=== PATIENT | male | born 1955 | race Caucasian/White ===

== ENCOUNTER → 2021-03-19 10:05 | Outpatient (BNVA) | payer OTHER, SELFPAY | PROVIDERS: PCP Nurse Practitioner Family; Referring Provider Nurse Practitioner Family; Visit Provider Anesthesiology Pain Medicine | DX: M51.36 Other intervertebral disc degeneration, lumbar region (principal); M47.816 Spondylosis without myelopathy or radiculopathy, lumbar region; Z96.643 Presence of artificial hip joint, bilateral; Z87.891 Personal history of nicotine dependence | CPT/HCPCS: 99205 ==

== ENCOUNTER → 2021-03-27 13:45 | Outpatient (BNVA) | payer OTHER, SELFPAY | PROVIDERS: PCP Nurse Practitioner Family; Visit Provider Anesthesiology Pain Medicine | DX: M47.816 Spondylosis without myelopathy or radiculopathy, lumbar region (principal) | CPT/HCPCS: 64493; 64494; 64495; J3490 ==

== ENCOUNTER → 2021-04-11 10:24 | Outpatient (BNVA) | payer OTHER, SELFPAY | PROVIDERS: PCP Nurse Practitioner Family; Visit Provider Anesthesiology Pain Medicine | DX: M51.36 Other intervertebral disc degeneration, lumbar region (principal); M47.816 Spondylosis without myelopathy or radiculopathy, lumbar region; Z96.643 Presence of artificial hip joint, bilateral | CPT/HCPCS: 99214 ==

== ENCOUNTER → 2021-04-22 12:37 | Outpatient (BNVA) | payer OTHER, SELFPAY | PROVIDERS: PCP Nurse Practitioner Family; Visit Provider Anesthesiology Pain Medicine | DX: Z01.812 Encounter for preprocedural laboratory examination (principal); E11.9 Type 2 diabetes mellitus without complications; M47.816 Spondylosis without myelopathy or radiculopathy, lumbar region | CPT/HCPCS: 36416; 64635; 64636; 82962 ==

== ENCOUNTER → 2021-05-27 14:41 | Outpatient (BNVA) | payer OTHER, SELFPAY | PROVIDERS: PCP Nurse Practitioner Family; Visit Provider Anesthesiology Pain Medicine | DX: Z01.812 Encounter for preprocedural laboratory examination (principal); E11.9 Type 2 diabetes mellitus without complications; M47.816 Spondylosis without myelopathy or radiculopathy, lumbar region; M54.16 Radiculopathy, lumbar region; Z79.84 Long term (current) use of oral hypoglycemic drugs | CPT/HCPCS: 36416; 64635; 64636; 82962; J1030 ==

== ENCOUNTER → 2021-05-29 09:11 | Outpatient (BNVA) | payer OTHER, SELFPAY | PROVIDERS: PCP Nurse Practitioner Family; Visit Provider Specialist | DX: M25.511 Pain in right shoulder (principal) | CPT/HCPCS: 73030 ==

== ENCOUNTER → 2021-06-10 09:54 | Outpatient (BNVA) | payer OTHER, SELFPAY | PROVIDERS: PCP Nurse Practitioner Family; Visit Provider Anesthesiology Pain Medicine | DX: G89.29 Other chronic pain (principal); M51.36 Other intervertebral disc degeneration, lumbar region; M47.816 Spondylosis without myelopathy or radiculopathy, lumbar region; M25.551 Pain in right hip; M25.552 Pain in left hip; Z96.643 Presence of artificial hip joint, bilateral | CPT/HCPCS: 99214 ==

== ENCOUNTER 2021-06-14 06:00 | Outpatient (RCR) | payer OTHER, SELFPAY | END 2021-07-02 23:59 | disposition home or self-care (01) | LOC: WPT 06:00 | PROVIDERS: PCP Nurse Practitioner Family; Referring Provider Specialist; Visit Provider Specialist | DX: M25.511 Pain in right shoulder (principal) | CPT/HCPCS: 97110; 97140; 97162; 97530 ==

== ENCOUNTER 2021-07-03 06:00 | Outpatient (RCR) | payer OTHER, SELFPAY | END 2021-08-02 23:59 | disposition home or self-care (01) | LOC: WPT 06:00 | PROVIDERS: PCP Nurse Practitioner Family; Referring Provider Specialist; Visit Provider Specialist | DX: M25.511 Pain in right shoulder (principal) | CPT/HCPCS: 97110; 97140; 97530 ==

== ENCOUNTER 2021-08-03 06:00 | Outpatient (RCR) | payer OTHER, SELFPAY | END 2021-09-02 23:59 | disposition home or self-care (01) | LOC: WPT 06:00 | PROVIDERS: PCP Nurse Practitioner Family; Referring Provider Specialist; Visit Provider Specialist | DX: M25.511 Pain in right shoulder (principal) | CPT/HCPCS: 97110; 97140 ==

== ENCOUNTER → 2021-09-16 09:58 | Outpatient (BNVA) | payer OTHER, SELFPAY | PROVIDERS: PCP Nurse Practitioner Family; Visit Provider Anesthesiology Pain Medicine | DX: M51.36 Other intervertebral disc degeneration, lumbar region (principal); M47.816 Spondylosis without myelopathy or radiculopathy, lumbar region; Z96.643 Presence of artificial hip joint, bilateral; Z87.891 Personal history of nicotine dependence | CPT/HCPCS: 99214 ==

== ENCOUNTER 2021-10-28 06:00 | Outpatient (RCR) | payer OTHER, SELFPAY | END 2021-10-31 23:59 | disposition home or self-care (01) | LOC: WST 06:00 | PROVIDERS: PCP Nurse Practitioner Family; Referring Provider Nurse Practitioner Family; Visit Provider Nurse Practitioner Family | DX: R13.10 Dysphagia, unspecified (principal) | CPT/HCPCS: 92610 ==

== ENCOUNTER 2021-11-01 06:00 | Outpatient (RCR) | payer OTHER, SELFPAY | END 2021-11-30 23:59 | disposition home or self-care (01) | LOC: WST 06:00 | PROVIDERS: PCP Nurse Practitioner Family; Referring Provider Nurse Practitioner Family; Visit Provider Nurse Practitioner Family | DX: R13.10 Dysphagia, unspecified (principal) | CPT/HCPCS: 92526 ==

== ENCOUNTER → 2021-11-05 09:53 | Outpatient (BNVA) | payer OTHER, SELFPAY | PROVIDERS: PCP Nurse Practitioner Family; Visit Provider Anesthesiology Pain Medicine | DX: M51.36 Other intervertebral disc degeneration, lumbar region (principal); M47.816 Spondylosis without myelopathy or radiculopathy, lumbar region; Z96.643 Presence of artificial hip joint, bilateral; Z87.891 Personal history of nicotine dependence | CPT/HCPCS: 99214 ==

== ENCOUNTER 2021-12-01 06:00 | Outpatient (RCR) | payer OTHER, SELFPAY | END 2021-12-31 23:59 | disposition home or self-care (01) | LOC: WST 06:00 | PROVIDERS: PCP Nurse Practitioner Family; Referring Provider Nurse Practitioner Family; Visit Provider Nurse Practitioner Family | DX: R13.10 Dysphagia, unspecified (principal) | CPT/HCPCS: 92526 ==

== ENCOUNTER 2022-01-01 06:00 | Outpatient (RCR) | payer OTHER, SELFPAY | END 2022-01-30 23:59 | disposition home or self-care (01) | LOC: WST 06:00 | PROVIDERS: PCP Nurse Practitioner Family; Referring Provider Nurse Practitioner Family; Visit Provider Nurse Practitioner Family | DX: R13.10 Dysphagia, unspecified (principal) | CPT/HCPCS: 92526 ==

== ENCOUNTER → 2022-01-07 07:47 | Outpatient (BNVA) | payer OTHER, SELFPAY | PROVIDERS: PCP Nurse Practitioner Family; Visit Provider Anesthesiology Pain Medicine | DX: M51.36 Other intervertebral disc degeneration, lumbar region (principal); M47.816 Spondylosis without myelopathy or radiculopathy, lumbar region; M25.551 Pain in right hip; M25.552 Pain in left hip; Z96.643 Presence of artificial hip joint, bilateral; Z87.891 Personal history of nicotine dependence | CPT/HCPCS: 99212 ==

== ENCOUNTER 2022-01-28 06:00 | Outpatient (RCR) | payer OTHER, SELFPAY | END 2022-01-30 23:59 | disposition home or self-care (01) | LOC: WPT 06:00 | PROVIDERS: PCP Nurse Practitioner Family; Referring Provider Nurse Practitioner Family; Visit Provider Nurse Practitioner Family | DX: G89.29 Other chronic pain (principal); M54.50 Low back pain, unspecified | CPT/HCPCS: 97162 ==

== ENCOUNTER 2022-01-31 06:00 | Outpatient (RCR) | payer OTHER, SELFPAY | END 2022-03-02 23:59 | disposition home or self-care (01) | LOC: WPT 06:00 | PROVIDERS: PCP Nurse Practitioner Family; Referring Provider Nurse Practitioner Family; Visit Provider Nurse Practitioner Family | DX: M54.50 Low back pain, unspecified (principal) | CPT/HCPCS: 97110 ==

== ENCOUNTER 2022-03-03 06:00 | Outpatient (RCR) | payer OTHER, SELFPAY | END 2022-04-02 23:59 | disposition home or self-care (01) | LOC: WPT 06:00 | PROVIDERS: PCP Nurse Practitioner Family; Referring Provider Nurse Practitioner Family; Visit Provider Nurse Practitioner Family | DX: M54.50 Low back pain, unspecified (principal) | CPT/HCPCS: 97110; 97164 ==

== ENCOUNTER → 2022-03-26 08:55 | Outpatient (BNVA) | payer OTHER, SELFPAY | PROVIDERS: PCP Nurse Practitioner Family; Visit Provider Anesthesiology Pain Medicine | DX: M25.551 Pain in right hip (principal); M25.552 Pain in left hip; Z87.891 Personal history of nicotine dependence; M51.36 Other intervertebral disc degeneration, lumbar region; M47.816 Spondylosis without myelopathy or radiculopathy, lumbar region; Z96.643 Presence of artificial hip joint, bilateral | CPT/HCPCS: 99213 ==

== ENCOUNTER → 2022-05-14 13:10 | Outpatient (BNVA) | payer OTHER, SELFPAY | PROVIDERS: PCP Nurse Practitioner Family; Visit Provider Specialist | DX: M19.011 Primary osteoarthritis, right shoulder (principal) | CPT/HCPCS: 20610; 73030; 99213; J1100; J2795; J3301 ==

== ENCOUNTER → 2022-06-18 09:46 | Outpatient (BNVA) | payer OTHER, SELFPAY | PROVIDERS: PCP Nurse Practitioner Family; Visit Provider Anesthesiology Pain Medicine | DX: M51.36 Other intervertebral disc degeneration, lumbar region (principal); M47.816 Spondylosis without myelopathy or radiculopathy, lumbar region; M25.551 Pain in right hip; M25.552 Pain in left hip; Z87.891 Personal history of nicotine dependence; Z96.643 Presence of artificial hip joint, bilateral | CPT/HCPCS: 99214 ==

== ENCOUNTER 2022-08-12 06:00 | Outpatient (RCR) | payer OTHER, SELFPAY | END 2022-09-02 23:59 | disposition home or self-care (01) | LOC: WPT 06:00 | PROVIDERS: PCP Nurse Practitioner Family; Visit Provider Anesthesiology Pain Medicine | DX: M54.50 Low back pain, unspecified (principal); G89.29 Other chronic pain | CPT/HCPCS: 97110; 97112; 97161; 97530 ==

== ENCOUNTER 2022-09-03 06:00 | Outpatient (RCR) | payer OTHER, SELFPAY | END 2022-09-30 23:59 | disposition home or self-care (01) | LOC: WPT 06:00 | PROVIDERS: PCP Nurse Practitioner Family; Visit Provider Anesthesiology Pain Medicine | DX: M54.50 Low back pain, unspecified (principal); G89.29 Other chronic pain | CPT/HCPCS: 97110; 97112 ==

== ENCOUNTER 2022-10-01 06:00 | Outpatient (RCR) | payer OTHER, SELFPAY | END 2022-10-31 23:59 | disposition home or self-care (01) | LOC: WPT 06:00 | PROVIDERS: PCP Nurse Practitioner Family; Visit Provider Anesthesiology Pain Medicine | DX: M54.50 Low back pain, unspecified (principal); G89.29 Other chronic pain | CPT/HCPCS: 97110; 97112 ==

== ENCOUNTER → 2022-10-08 08:45 | Outpatient (BNVA) | payer OTHER, SELFPAY | PROVIDERS: PCP Nurse Practitioner Family; Visit Provider Nurse Practitioner Family | DX: M19.011 Primary osteoarthritis, right shoulder (principal) | CPT/HCPCS: 73030; 99214 ==

== ENCOUNTER 2022-11-06 15:39 | Outpatient (CLI) | payer OTHER, SELFPAY ==
--- NOTE | 2022-11-06 16:00 | MR_ITS ---
WS: [id number] EXAMINATION: MR shoulder RT wo con* [id number] ORDER DATE: 11/06/2022 4:36 PM COMPARISON: None. HISTORY: pain CONTRAST: None. TECHNIQUE: Axial T2 STAR, coronal proton density fat sat, sagittal T2 fat sat, sagittal proton densit y fat sat, axial proton density fat sat, coronal T2 fat sat, and coronal T1 performed. After contrast , axial T1 fat sat, coronal T1 fat sat, and sagittal T1 fat sat were performed. FINDINGS: Advanced degenerative arthritis AC joint. Mild downsloping acromion. Slight subacromial spurring. Imp ingement on the distal supraspinatus. Advanced degenerative narrowing glenohumeral joint. Hypertrophi c spurring along the medial humeral neck. Chronic thinning of the distal supraspinatus appears intact. Normal infraspinatus. Normal teres minor . Distal subscapularis appears normal. Biceps tendon appears intact within the bicipital groove. Leonarda ps labral anchor appears intact. Tendinopathy intra-articular biceps tendon. MR/MR shoulder RT wo con* [id number] IMPRESSION: 1. Advanced arthritis AC joint with hypertrophic changes and small effusion. 2. Mild narrowing of the subacromial space. Mild chronic thinning of the dista l supraspinatus appears intact. 3. Rotator cuff is otherwise intact. 4. Biceps tendon appears intact within the bicipital groove. 5. Increased T2 signal abnormality involving the intra-articular biceps tendon compatible with tendinopathy. 6. Advanced degenerative arthritis glenohumeral joint with hypertrophic spurri ng and joint space narrowing.
== END 2022-11-06 15:40 | disposition home or self-care (01) ==
PROVIDERS: PCP Nurse Practitioner Family; Visit Provider Nurse Practitioner Family
DX: M19.011 Primary osteoarthritis, right shoulder (principal); M25.411 Effusion, right shoulder
CPT/HCPCS: 73221

== ENCOUNTER → 2022-11-17 09:45 | Outpatient (BNVA) | payer OTHER, SELFPAY | PROVIDERS: PCP Nurse Practitioner Family; Visit Provider Specialist | DX: M19.011 Primary osteoarthritis, right shoulder (principal) | CPT/HCPCS: 99214 ==

== ENCOUNTER 2022-11-18 13:19 | Outpatient (CLI) | payer OTHER, SELFPAY | END 2022-11-18 13:20 | disposition home or self-care (01) | LOC: RT 11-19 13:23 | PROVIDERS: PCP Nurse Practitioner Family; Visit Provider Specialist | DX: Z01.810 Encounter for preprocedural cardiovascular examination (principal) | CPT/HCPCS: 93005 ==

== ENCOUNTER 2022-11-25 14:46 | Observation (INO) | payer OTHER, SELFPAY ==
[2022-11-18 10:24] VITALS: BMI 38.0
--- NOTE | 2022-11-18 10:41 | ECG_ITS ---
[facility] Test Date: 2022-11-18 Pat Name: Shaq Patel Department: Room: Gender: Male Material Requirements Planning Manager: : 1955 Requested By: Francisco Batista Order Number: [id number] Javier MD: Matt Freitas M.D. Measurements Intervals [place] Rate: 74 P: 40 VT: 177 QRS: -33 QRSD: 119 T: 53 QT: 379 QTc: 421 Interpretive Statements SINUS RHYTHM LEFT AXIS DEVIATION [QRS AXIS < -30] PATTERN CONSISTENT WITH PULMONARY DISEASE MODERATE INTRAVENTRICULAR CONDUCTION DELAY [110+ ms QRS DURATION] MODERATE VOLTAGE CRITERIA FOR LVH, CONSIDER NORMAL VARIANT [MEETS CRITERIA IN ONE OF: R(aVL), S(V1), R(V5), R(V5/V6)+S(V1)] No previous ECG available for comparison Electronically Signed On 11-18-2022 15:04:52 CDT by Matt Freitas M.D. [id number]
[2022-11-18 11:24] LABS: Anion Gap 15.7 (5-19); Blood Urea Nitrogen 14 mg/dL (8-23); Calcium 9.1 mg/dL (8.5-10.5); Carbon Dioxide 25 mmol/L (22-29); Chloride 101 mmol/L (98-107); Glucose 105 mg/dL (65-115); Osmolality Calculated 287 mOsm/kg (285-295); Potassium 3.7 mmol/L (3.5-5.1); Sodium 138 mmol/L (136-145)
--- NOTE | 2022-11-18 13:23 | ANES.PREANE2 ---
Pre-Anesthetic Assessment Height/Weight: Height 1.78 m Weight 120.202 kg Operation Date: 11/25/22 11:15 Proposed Procedures p RIGHT REVERSE TOTAL SHOULDER ARTHROPLASTY 41808,M19.019(Right) - Osiris Lujan MD Familial anesthetic complications: none Was Beta Diane taken within 24 hours: Yes Was Clonidine taken within 24 hours: N/A Social No alcohol and No tobacco Exam alert, oriented x 3, clear to auscultation bilaterally and regular rate & rhythm Airway Submandibular: within normal limits Cervical ROM: within normal limits Mallampati: Class II Dentition: chipped and partials Pulmonary Sleep Apnea CV/HEM Hypertension Metabolic Diabetes Mellitus, Hyperlipidemia and Morbid Obesity [facility] Lower Back Pain and Osteoarthritis/DJD Anesthetic Plan ASA status: 3 Anesthesia: General and Regional (specify below) (Interscalene nerve blk) Medications/Allergies Home Medications Medication Instructions Recorded Confirmed Last Taken Type amlodipine 10 mg tablet 10 mg PO DAILY 03/19/21 11/18/22 11/18/22 History atenolol 100 mg tablet 50 mg PO DAILY 03/19/21 11/18/22 11/18/22 History atorvastatin 80 mg tablet 40 mg PO DAILY 03/19/21 11/18/22 11/17/22 History cetirizine 10 mg tablet 10 mg PO DAILY PRN Allergic 03/19/21 11/18/22 11/18/22 History Symptoms diclofenac sodium 1 % topical gel 2 g topical QID 03/19/21 11/18/22 11/16/22 History fluticasone propionate 50 2 spray intranasal DAILY 03/19/21 11/18/22 11/16/22 History mcg/actuation nasal spray,suspension furosemide 20 mg tablet 20 mg PO DAILY 03/19/21 11/18/22 11/18/22 History glipizide 5 mg tablet 5 mg PO BID 03/19/21 11/18/22 11/16/22 History losartan 100 mg tablet 100 mg PO DAILY 03/19/21 11/18/22 11/18/22 History sildenafil 100 mg tablet 100 mg PO .WEEK PRN Systemic Signs 03/19/21 11/18/22 11/16/22 History And Symptoms tamsulosin 0.4 mg capsule (Flomax) 0.4 mg PO DAILY 03/19/21 11/18/22 11/17/22 History cyclobenzaprine 10 mg tablet 10 mg PO TID 03/26/22 11/18/22 11/18/22 History metformin 1,000 mg tablet 1,000 mg PO 2XD 11/18/22 11/18/22 11/18/22 History Allergies Allergy/AdvReac Type Severity Reaction Status Date / Time No Known Allergies Allergy Verified 11/18/22 10:14 [facility] Anesthesia Medical History Facet arthritis, degenerative, lumbar spine Family History Mother Cancer LUNG Social History Smoking and tobacco status: former smoker Second hand smoke exposure: No Alcohol intake: never Caregiver/support person: Yes Lives independently: Yes Household members: spouse service: Yes branch: [employer] Current occupational status: retired Data Anesthesia 11/18/22 10:45 BMP 11/18/22 10:45 Sodium 138 Potassium 3.7 Chloride 101 Carbon Dioxide 25 BUN 14 Creatinine 0.8 Glucose 105 Calcium 9.1 Cardiac Studies: No Data to Display
[2022-11-25] VITALS (11 sets, daily range): BP systolic 117–167; BP diastolic 45–102; PULSE 73–92; RESP 15–20; TEMP 36.4–36.7; O2SAT 91–98
--- NOTE | 2022-11-25 10:21 | P.HPUD_ITS ---
Surgery/Procedure H&P Update DATE OF PROCEDURE: November 25, 2022 DATE H&P PERFORMED: 11/17/22 H&P UPDATE INFORMATION: I have reviewed H&P completed within last 30 days, I have examined patient prior to procedure, No changes to prior documentation and H&P is in [facility] EMR on date indicated PREOP DIAGNOSIS: Rotator cuff arthropathy right shoulder PLANNED PROCEDURE: Operation Date: 11/25/22 11:15 Proposed Procedures p RIGHT REVERSE TOTAL SHOULDER ARTHROPLASTY 39744,M19.019(Right) - Osiris Lujan MD Related Problem List Diagnoses (1) Rotator cuff arthropathy of right shoulder: (2) Primary osteoarthritis, right shoulder:
[2022-11-25] MEDS: acetaminophen 1,000 MG/100 ML PIGGYBACK 400 MG IV (10:32)
[2022-11-25] MEDS: sodium chloride 0.9% 1,000 ML 30 ML IV (10:32)
[2022-11-25] MEDS: gabapentin 300 mg Capsule PO (10:33)
[2022-11-25] MEDS: CELEcoxib 200 mg Capsule 400 MG PO (10:33)
[2022-11-25] MEDS: ceFAZolin 2,000 MG in sodium chloride 0.9% (plus) 50 ML 100 MG IV ×2 (11:10→19:43)
[2022-11-25 11:13] LABS: Add Urine Microscopic? NO; Charge for UA Resulting for Rev
--- NOTE | 2022-11-25 11:16 | P.ANESUD_ITS ---
Pre-Anesthetic Update Pre-Anesthetic Assessment: Date of Surgery/Procedure: 11/25/22 Preop Lynette gnosis: Rotator cuff arthropathy right shoulder Proposed Procedure: Operation Date: 11/25/22 11:15 Proposed Procedures p RIGHT REVERSE TOTAL SHOULDER ARTHROPLASTY 40880,M19.019(Right) - Osiris Lujan MD Any changes to Pre-Anesthetic Assessment?: No Last Intake: Intake Last Liquid Date 11/24/22 Last Liquid Time 23:00 Last Solid Date 11/24/22 Last Solid Time 23:00 Vitals: Temperature 98.1 F 11/25/22 09:54 Temperature Source Temporal Artery S can 11/25/22 09:54 Pulse Rate 76 11/25/22 09:54 Respiratory Rate 18 11/25/22 09:54 Blood Pressure 167/102 11/25/22 09:54 Blood Pressure Jennifer n 123 11/25/22 09:54 Pulse Oximetry 98 11/25/22 09:54 Oxygen Delivery Me thod Room Air 11/25/22 09:57 Exam: Pre-Anes Outpt Exam: alert, oriented x 3, clear to auscultation bilaterally and regular rate & rhythm Cardiac Studies: No Data to Display Anesthesia Procedures Nerve Block: Nerve Block 1: Main Anesthesia: general anesthesia Time Out Performed: Yes Consent: requested by attending/covering physician, from patient, risks and benefits reviewed and patient agrees to proceed Nerve block location: interscalene (right) Anesthesia monitors applied: pulse oximetry, EKG, BP cuff and oxygen Nerve block position: semi sitting Anesthetic Used: ropivicaine 0.5% Amount of anesthesia used (mL): 30 Ultrasound used to: recognize landmarks and visualize and ID brachial plexus Nerve Stimulator Used?: No Interscalene/Femoral BLK: 2 stimuplex 22 g needle used for position and inplane approach Injection: neg aspiration of heme Patient Tolerated Procedure: well Complications: none
[2022-11-25 11:18] LABS: Bilirubin Urine Neg (Negative); Blood Urine Neg (Negative); Glucose Urine UA Norm (Normal); Ketones Urine Negative (Negative); Leukocyte Esterase Urine Negative (Negative); Nitrate Urine Negative (Negative); Protein Urine Neg (Negative); Specific Gravity, Urine 1.005 (1.005-1.030); Urine Appearance Clear (CLEAR); Urine Color Yellow (Yellow); Urobilinogen Urine Neg (Negative); pH Urine 7 (5-7)
[2022-11-25 11:18] LABS: Basophils # 0.1 10^3/uL (0.0-0.1); Basophils % 0.8 %; Eosinophils # 0.3 10^3/uL (0.0-0.8); Eosinophils % 3.4 %; Hematocrit 46.8 % (42.0-52.0); Hemoglobin 15.5 g/dL (11.7-16.6); Lymphocytes # 2.5 10^3/uL (0.8-4.8); Lymphocytes % 25.1 %; Mean Corpuscular HGB Conc 33.1 g/dL (30.0-36.0); Mean Corpuscular Hemoglobin 29.4 pg (28.0-34.0); Mean Corpuscular Volume 88.6 fl (80-94); Mean Platelet Volume 9.7 fL (7.4-10.4); Monocytes # 0.5 10^3/uL (0.2-0.9); Monocytes % 5.2 %; Neutrophils # 6.48 10^3/uL (1.8-7.7); Neutrophils % 65.1 %; Nucleated Red Blood Cells % 0 %; Platelet Count 295 10^3/cmm (130-400); Red Blood Count 5.28 10^6/uL (4.1-5.3); Red Cell Distribution Width 13.4 % (12.1-15.1)
[2022-11-25] MEDS: ceFAZolin 1,000 mg SDV 1000 MG IRRIGATION (11:53)
[2022-11-25] MEDS: vancomycin 1,000 MG SDV 1000 MG XX (11:53)
--- NOTE | 2022-11-25 14:03 | XR_ITS ---
WS: [id number] Exam: XR shoulder RT min 2V* [id number] Date/Time of Exam: 11/25/2022 2:03 PM Reason For Exam: OR PICS Intraoperative AP and lateral C-arm images of the right shoulder are submitted. The images depict a reverse right shoulder prosthesis in place appearing to be in satisfactory alignm ent. Postoperative changes in the adjacent soft tissues.
--- NOTE | 2022-11-25 14:59 | ANE.PACU2 ---
Inpatient post-anesthesia follow up: Airway intact: Yes Vital signs: Temperature 98.1 F Pulse Rate 83 Respiratory Rate 20 Blood Pressure 160/99 Pulse Oximetry 97 Oxygen Delivery Me thod Simple Mask Oxygen Flow Rate 6 Fraction of Inspir ed Oxygen Hydration adequate: Yes Nausea and vomiting: No Pain level: 1 Mental status: Baseline
--- NOTE | 2022-11-25 15:07 | PM.OP ---
Operative Report Date of procedure: November 25, 2022 Pre-op diagnosis: Severe degenerative osteoarthritis and rotator cuff arthropathy of the Right shoulder with significant osteophytes Post-op diagnosis: Severe degenerative osteoarthritis and rotator cuff arthropathy of the Right shoulder with significant osteophytes Post-op findings: Large osteophytes particularly inferiorly on the humerus with severe restriction of range of motion even under anesthesia Procedure done: Reverse right shoulder arthroplasty with long head of biceps tenotomy Implants: [employer] reverse shoulder system with a size 28 reunion RSA glenoid base plate with a 28 mm x 6.5 mm center screw, a 4.5 mm x 20 mm inferior, 3 x 4.5 x 16 mm superior, anterior and posterior screws, a concentric glenosphere size 32 with 2 mm offset.? A reunion S humeral stem with a 14 mm diameter by 98 mm length and a humeral cup size 32 mm x 4 mm with a humeral insert size 32 mm x 4 mm Specimens removed/disposition: Bone, disposed of Surgeon: Osiris Lujan Senior Energy Market Coordinator: [facility] operating room technicians Anesthesia: General (Intubated, ASA 3 with preoperative interscalene block) Estimated blood loss (mL): 150 IV fluids (mL): 1,000 Urine output (mL): 400 Complications: None Findings: Severe degenerative osteoarthritic changes consistent with rotator cuff arthropathy. Large osteophytes inferior on the humeral head. Condition: stable Disposition: PACU (Then transferred to floor for postoperative rehabilitation and pain management.) Brief History: This is a 67-year-old gentleman who presented today for right reverse shoulder arthroplasty. By history, his pain has been ongoing since 2013, although he denies any prior trauma or injury. He underwent physical therapy as well as injection therapy without significant success in alleviating his pain and improving his activities of daily living. He has difficulty performing range of motion exercises, and the pain awakens him at night. He has difficulty completing his activities of daily living and also driving. After these findings and discussion of surgical options, the patient wished to proceed with reverse shoulder arthroplasty. This was scheduled for him. Consents were signed preoperatively in the office, and questions were answered. He is seen in the preoperative holding area where his shoulder is marked. His is present and further questions are answered. Procedure: The patient was brought to the operating theater and placed in a beachchair positioner following administration of general anesthesia intubated, ASA 3, as well as the preoperative regional block.? When he was positioned and confirmation was made that we could place the shoulder in appropriate positions to accomplish the surgical procedure, the right upper extremity was prepped and draped in usual fashion utilizing DuraPrep.? We confirmed we could visualize appropriately with fluoroscopy as well prior to prepping.? Following the DuraPrep, the patient's arm was draped free.? Preoperatively, the patient's arm had been marked and I subsequently initialed this.? During our surgical pause, we confirmed the site and side of surgery and this lex was visualized.? Additionally, the clavicle as well as the acromioclavicular joint and the coracoid were marked to allow appropriate incision placement.? Preoperative antibiotic, ancef 2 g, and TXA 1 g was also given.? Surgical pause was performed prior to incision. Incision then began between the acromioclavicular joint and coracoid and continued along the deltopectoral groove.? This was a standard deltopectoral incision.? Dissection continued through skin and soft tissues using a scalpel,and hemostasis was obtained using electrocautery.? The deltopectoral fascia was incised and care was taken to protect the cephalic vein.? Cephalic vein was retracted laterally and pectoralis was retracted medially.? Soft tissues were then elevated from the subscapularis tendon.? Retractors were placed.? The coracoid was palpated as well as the musculocutaneous nerve and these were retracted as well as the deltoid on the opposite side.? The leash of vessels at the inferior aspect of the subscapularis was cauterized.? Tag sutures were placed 2 cm medial to the biceps tendon and further medial and an incision was made through the capsule and subscapularis tendon between the 2 lines of sutures.? Incision was continued transversely both superiorly through the rotator interval and inferiorly to allow access to the shoulder joint.? Biceps tenotomy was accomplished with tenodesis. It was very difficult to dislocate the humeral head secondary to osteophytes.? There were large osteophytes inferiorly as well as anteriorly and posteriorly.? These were excised to allow dislocation of the humeral head.? Soft tissues were elevated off of the neck of the humerus following osteophyte removal.? In this way we were able to mobilize the humerus.? Osteotomy was accomplished of the humeral head, and we were then able to move the humeral head out of the way to visualize the glenoid.? Soft tissues were resected from around glenoid and down onto the glenoid neck.? Cautery was used to do this so that we could fully visualize for placement of the components.? Care was taken to protect the musculocutaneous and also the axillary nerves during this process.? The glenoid was found to be osteopenic, and there was significant deformity to the glenoid with a significant dish appearance.? The humerus was also noted to be quite osteopenic. The glenoid was visualized.? The guidewire was placed into the glenoid.? This pin was placed until a bicortical hole was obtained.? Care was taken to assure that we were bicortical.? This was measured and the screw measured a size 28 mm.? Prior to removal of the guidewire, reaming of the glenoid was accomplished.? We reamed until we had good cortical bleeding bone.? Following this the guide pin was removed and a depth gauge was utilized to assure that this was the appropriate length screw to truly be bicortical.? Palpation with the depth gauge demonstrated that we were indeed bicortical.? Finding this to be so and having reamed to good bleeding bone, the 28 mm reunion RSA glenoid base plate was screwed into position with the peripheral screws being at 12:00, 9:00, 6:00 and 3:00 positions.? This was screwed securely into place and the peripheral screws were placed.? We had good purchase with all peripheral screws and their length included 20 mm inferiorly, and 16 mm screws superior, anterior and posterior.? Once the glenoid had been thus prepared, the concentric glenosphere, size 32 mm with a 2 mm offset was impacted into position.? Care was taken to fully evaluate that the glenosphere had seated completely. X-ray was used to confirm appropriate position and seating of the glenosphere as well. Attention was directed to the humerus to prepare the humerus.? Once the humeral head osteotomy had been accomplished and osteophytes at been removed, we were able to mobilize the humerus and bring it up out of the wound slightly.? Sequential reamers were then passed and subsequently sequential broaches.? We broached to a size 14 S with a 14 reamer having been passed as well.?A trial reduction was accomplished with the glenosphere at 32 mm with a 2 mm offset and with a 32 mm x 4 mm humeral cup and a 32 mm x 4 mm reunion RSA X3 humeral insert. With this construct, we had excellent range of motion.? We were able to abduct to 90?, and we had free range of motion below this with excellent internal and external rotation.? We had no obvious impingement.? Distraction on the arm demonstrated approximately a millimeter of distraction.? Gentle range of motion was accomplished.? Therefore, these were the chosen components.? All trial components were removed including the broach. A size 14 S reunion TSA modular humeral stem was impacted into position.? Onto this subsequently was placed the 32 mm x 4 mm humeral cup which had been assembled to the 32 x 4 mm humeral insert.? The construct was reduced.? Once again, range of motion was performed, we had excellent stability with no evidence of dislocation.? Therefore, attention was directed to closure.? The shoulder was irrigated copiously with normal saline with Betadine and subsequently this was irrigated out with normal saline.? Closure was then accomplished utilizing 0 Ethibond to close anterior rotator cuff tissues.?The deltopectoral groove was then evaluated.? We then placed vancomycin powder and Surgiflo.? The subcutaneous tissues were closed using 2-0 Monocryl.? The skin was closed with a running 3-0 Monocryl.? This was followed by Steri-Strips and Dermabond pernio.? Sterile dressing was placed consisting of an OpSite.? The patient was placed in a slingshot style sling and was returned to recovery room in satisfactory condition where he will be discharged to the floor for postoperative rehabilitation and pain management.? There were no specimens and no complications.? X-rays were obtained intraoperatively and demonstrated both appropriate position and reduction of the components as well as excellent fit of the humeral canal. Related Problem List Diagnoses (1) Primary osteoarthritis, right shoulder: (2) Rotator cuff arthropathy of right shoulder:
[2022-11-25] MEDS: cyclobenzaprine 10 mg Tablet PO ×2 (16:57→21:04)
[2022-11-25] MEDS: metformin 500 mg Tablet 1000 MG PO (16:58)
[2022-11-25] MEDS: sennosides-docusate Tablet 2 TAB PO (16:58)
[2022-11-25] MEDS: oxyCODONE 5 mg IR Tab/Cap PO (21:05)
[2022-11-25] MEDS: CELEcoxib 200 mg Capsule PO (21:05)
[2022-11-26] VITALS (8 sets, daily range): BP systolic 124–156; BP diastolic 71–93; PULSE 88–97; RESP 16–18; TEMP 36.4–36.7; O2SAT 92–96
[2022-11-26] MEDS: ceFAZolin 2,000 MG in sodium chloride 0.9% (plus) 50 ML 100 MG IV ×2 (03:41→11:15)
[2022-11-26] MEDS: oxyCODONE 5 mg IR Tab/Cap PO ×2 (03:47→08:33)
[2022-11-26 07:17] LABS: Basophils % 0.1 %; Eosinophils % 0.1 %; Hematocrit 41.3 % (42.0-52.0); Hemoglobin 13.8 g/dL (11.7-16.6); Lymphocytes # 1.8 10^3/uL (0.8-4.8); Lymphocytes % 12.1 %; Mean Corpuscular HGB Conc 33.4 g/dL (30.0-36.0); Mean Corpuscular Volume 89.8 fl (80-94); Mean Platelet Volume 9.2 fL (7.4-10.4); Monocytes # 0.9 10^3/uL (0.2-0.9); Monocytes % 5.7 %; Neutrophils # 12.22 10^3/uL (1.8-7.7); Neutrophils % 81.5 %; Nucleated Red Blood Cells % 0 %; Platelet Count 282 10^3/cmm (130-400); Red Cell Distribution Width 13.5 % (12.1-15.1)
[2022-11-26] MEDS: sennosides-docusate Tablet 2 TAB PO (08:27)
[2022-11-26] MEDS: FUROsemide 20 mg Tablet PO (08:28)
[2022-11-26] MEDS: aspirin 325 mg EC Tablet PO (08:28)
[2022-11-26] MEDS: metformin 500 mg Tablet 1000 MG PO (08:28)
[2022-11-26] MEDS: atorvastatin 40 mg Tablet PO (08:28)
[2022-11-26] MEDS: tamsulosin 0.4 mg Capsule PO (08:28)
[2022-11-26] MEDS: atenolol 50 mg Tablet PO (08:28)
[2022-11-26] MEDS: losartan 50 mg Tablet 100 MG PO (08:29)
[2022-11-26] MEDS: cyclobenzaprine 10 mg Tablet PO (08:29)
[2022-11-26] MEDS: amlodipine 10 mg Tablet PO (08:29)
[2022-11-26] MEDS: multivitamin therapeutic Tablet 1 TAB PO (08:30)
[2022-11-26 09:13] LABS: Glucose Point of Care 146 mg/dL (70-110)
[2022-11-26] MEDS: CELEcoxib 200 mg Capsule PO (11:15)
--- NOTE | 2022-11-26 13:32 | P.DS_ITS ---
Discharge Providers Date of Admission: 11/25/22 14:46 Date of Discharge: November 26, 2022 Attending Provider at Admission: Osiris Lujan MD Attending Provider at Discharge: Osiris Lujan MD Primary Care Provider: Natasha Wagner Diagnoses at Discharge Discharge Diagnosis (1) Primary osteoarthritis, right shoulder: Status: Acute (2) Rotator cuff arthropathy of right shoulder: Status: Acute (3) Status post reverse total arthroplasty of right shoulder: Status: Acute Permanent problem details: Date of procedure: November 25, 2022 Diagnosis: Severe degenerative osteoarthritis and rotator cuff arthropathy of the Right shoulder with significant osteophytes Procedure done: Reverse right shoulder arthroplasty with long head of biceps tenotomy Implants: The wooju reverse shoulder system with a size 28 reunion RSA glenoid base plate with a 28 mm x 6.5 mm center screw, a 4.5 mm x 20 mm inferior, 3 x 4.5 x 16 mm superior, anterior and posterior screws, a concentric glenosphere size 32 with 2 mm offset. A reunion S humeral stem with a 14 mm diameter by 98 mm length and a humeral cup size 32 mm x 4 mm with a humeral insert size 32 mm x 4 mm Reason for Visit Reason for Visit: Brief History: This is a 67-year-old gentleman who presented today for right reverse shoulder arthroplasty.? By history, his pain has been ongoing since 2013, although he denies any prior trauma or injury.? He underwent physical therapy as well as injection therapy without significant success in alleviating his pain and improving his activities of daily living.? He has difficulty performing range of motion exercises, and the pain awakens him at night.? He has difficulty completing his activities of daily living and also driving.? After these findings and discussion of surgical options, the patient wished to proceed with reverse shoulder arthroplasty.? This was scheduled for him.? Consents were signed preoperatively in the office, and questions were answered.? He is seen in the preoperative holding area where his shoulder is marked.? His is present and further questions are answered. Hospital Course Hospital Course This 67-year-old gentleman presented for same-day surgery in the form of right reverse shoulder arthroplasty. Postoperatively, he was admitted to the hospital under observation status. On the first postoperative day, he was sitting up in the chair with no complaints. He was neurologically intact distally. Dressing was dry and intact, but it was in place with no drainage. He appeared comfortable and well-controlled on oral pain medications. Therefore, he was discharged to home. He will follow the reverse shoulder protocol. He will r eturn to clinic as previously scheduled. Physical Exam Const: COMMON NORMALS: no acute distress, average body habitus, patient oriented x3 and alert GENERAL APPEARANCE: cooperative and comfortable ORIENTATION/CONSCIOUSNESS: Yes awake HENMT: COMMON NORMALS: normocephalic and atraumatic HEAD & SCALP: normocephalic and atraumatic Eye: GENERAL EYE: appearance normal, both eyes and all related structures Chest: COMMONS NORMALS: normal inspection of the chest Resp: COMMON NORMALS: normal respiratory effort EFFORT & INSPECTION: Yes able to speak in complete sentences and Yes symmetric chest movement Extremity: RIGHT UPPER EXTREMITY: Yes shoulder joint (Dressing dry and intact.) Right shoulder: Yes Right shoulder joint inspection exam (No drainage.), Yes Right shoulder joint ROM exam (Not evaluated.) and Yes Right shoulder joint neurovascular exam (Intact distally.) Neuro: COMMON NORMALS: patient oriented x3 SENSORIUM/ORIENTATION: Yes alert Psych: COMMON NORMALS: mental status grossly normal APPEARANCE: Yes grossly normal ATTITUDE: Yes calm and Yes engaged ATTENTION/CONCENTRATION: Yes attention grossly intact Skin: COMMON NORMALS: no rashes or lesions noted GENERAL SKIN EXAM: no rashes or lesions noted Urinary Catheter Management: Burns: Cath Placed During This Visit: yes, but has since been removed by the nurse Reason for Continuing Indwelling Catheter: Decision to DC Catheter Urinary Catheter Date of Insertion: 11/25/22 Urinary Catheter Time of Insertion: 11:30 Date Urinary Catheter Removed: 11/25/22 Time Urinary Catheter Discontinued: 15:48 Discharge Data Studies Completed and Pending Completed Studies During Hospitalization Category Date Time Status XR shoulder RT min 2V* [id number] Routine Exams 11/25/22 14:03 Completed Laboratory Results WBC 15.0 10^3/uL (4.0-10.0) H 11/26/22 06:52 RBC 4.60 10^6/uL (4.1-5.3) 11/26/22 06:52 Hgb 13.8 g/dL (11.7-16.6) 11/26/22 06:52 Hct 41.3 % (42.0-52.0) L 11/26/22 06:52 MCV 89.8 fl (80-94) 11/26/22 06:52 MCH 30.0 pg (28.0-34.0) 11/26/22 06:52 MCHC 33.4 g/dL (30.0-36.0) 11/26/22 06:52 RDW 13.5 % (12.1-15.1) 11/26/22 06:52 Plt Count 282 10^3/cmm (130-400) 11/26/22 06:52 MPV 9.2 fL (7.4-10.4) 11/26/22 06:52 Neut % (Auto) 81.5 % 11/26/22 06:52 Lymph % (Auto) 12.1 % 11/26/22 06:52 [place] % (Auto) 5.7 % 11/26/22 06:52 Eos % (Auto) 0.1 % 11/26/22 06:52 Baso % (Auto) 0.1 % 11/26/22 06:52 Neut # (Auto) 12.22 10^3/uL (1.8-7.7) H 11/26/22 06:52 Lymph # (Auto) 1.8 10^3/uL (0.8-4.8) 11/26/22 06:52 [place] # (Auto) 0.9 10^3/uL (0.2-0.9) 11/26/22 06:52 Eos # (Auto) 0.0 10^3/uL (0.0-0.8) 11/26/22 06:52 Baso # (Auto) 0.0 10^3/uL (0.0-0.1) 11/26/22 06:52 Nucleated RBC % (auto) 0 % 11/26/22 06:52 Nucleated RBCs # 0.0 /100WBC 11/26/22 06:52 Sodium 138 mmol/L (136-145) 11/18/22 10:45 Potassium 3.7 mmol/L (3.5-5.1) 11/18/22 10:45 Chloride 101 mmol/L (98-107) 11/18/22 10:45 Carbon Dioxide 25 mmol/L (22-29) 11/18/22 10:45 Anion Gap 15.7 (5-19) 11/18/22 10:45 BUN 14 mg/dL (8-23) 11/18/22 10:45 Creatinine 0.8 mg/dL (0.7-1.2) 11/18/22 10:45 GFR Calculation 97.0 mL/min (90-130) 11/18/22 10:45 Glucose 105 mg/dL (65-115) 11/18/22 10:45 POC Glucose 146 mg/dL (70-110) H 11/25/22 10:18 Calculated Osmolality 287 mOsm/kg (285-295) 11/18/22 10:45 Calcium 9.1 mg/dL (8.5-10.5) 11/18/22 10:45 Urine Color Yellow (Yellow) 11/25/22 10:35 Urine Appearance Clear (CLEAR) 11/25/22 10:35 Urine pH 7 (5-7) 11/25/22 10:35 Ur Specific [place] 1.005 (1.005-1.030) 11/25/22 10:35 Urine Protein Neg (Negative) 11/25/22 10:35 Urine Glucose (UA) Norm (Normal) 11/25/22 10:35 Urine Ketones Negative (Negative) 11/25/22 10:35 Urine Blood Neg (Negative) 11/25/22 10:35 Urine Nitrate Negative (Negative) 11/25/22 10:35 Urine Bilirubin Neg (Negative) 11/25/22 10:35 Urine Urobilinogen Neg mg/dL (Negative) 11/25/22 10:35 Ur Leukocyte Esterase Negative (Negative) 11/25/22 10:35 Vitals Last Vital Signs Temp 97.5 F L 11/26/22 12:11 Pulse 88 11/26/22 12:11 Resp 18 11/26/22 12:11 BP 124/71 11/26/22 12:11 Pulse Ox 92 11/26/22 12:11 O2 Del Method Room Air 11/26/22 12:11 O2 Flow Rate 2 11/26/22 04:00 Discharge Plan Discharge Patient Disposition: Home Health Service Condition: Stable Prescriptions: New celecoxib 200 mg Capsule 200 mg PO Q12H 30 Days Qty: 60 0RF aspirin 325 mg Tablet,Delayed Release (Dr/Ec) 325 mg PO DAILY 30 Days Qty: 30 0RF oxycodone 10 mg tablet 10 mg PO Q4H PRN (Reason: Moderate To Severe Pain) 7 Days Qty: 40 0RF Continued amlodipine 10 mg tablet 10 mg PO DAILY atenolol 100 mg tablet 50 mg PO DAILY atorvastatin 80 mg tablet 40 mg PO DAILY cetirizine 10 mg tablet 10 mg PO DAILY PRN (Reason: Allergic Symptoms) diclofenac sodium 1 % gel 2 g topical QID Rx Instructions: apply to single elbow, wrist or hand; for hand includes palm/fingers/back of hand fluticasone propionate 50 mcg/actuation spray,suspension 2 spray intranasal DAILY Rx Instructions: administer into each nostril furosemide 20 mg tablet 20 mg PO DAILY glipizide 5 mg tablet 5 mg PO BID losartan 100 mg tablet 100 mg PO DAILY sildenafil 100 mg tablet 100 mg PO .WEEK PRN (Reason: Systemic Signs And Symptoms) Rx Instructions: administer 30 minutes to 4 hours before activity tamsulosin [Flomax] 0.4 mg capsule 0.4 mg PO DAILY cyclobenzaprine 10 mg tablet 10 mg PO TID metformin 1,000 mg tablet 1,000 mg PO 2XD Discharge Orders: Discharge Order (Routine); Ordered 11/26/22 Ordered By: Osiris Lujan Referrals: [facility] [place] Care ([facility]) [Outside] Osiris Lujan MD [Physician] - 12/09/22 8:45 am Discharge Diet: Advance as tolerated, Usual diet and As Directed Discharge Activity: Limit activity as instructed and As per PT/OT instructions Patient Instructions: Oxycodone/Acetaminophen (By mouth), Aspirin (By mouth), Celecoxib (By mouth), Joint Replacement Surgery (DC), Shoulder Arthroplasty (GEN), Joint Replacement Stoplight, Opioid Safety Activity Restrictions/Additional Instructions: Maintain your dressing until it peels off on its own or you are seen in the clinic. Participate with therapy as outlined in the papers you were given. Exercises as per OT instructions. Discharge Attestations Time Spent in Discharge Care*: greater than 30 min Specific Discharge Activities: educating patient, educating and/or supporting family/caregiver, documenting/other paperwork and evaluating patient/reviewing data Quality Metrics Clinical Quality Measures [ No reported AMI, CVA or VTE this stay] Coding Level of Care Code Acute Code for Chg Fwd Diagnoses Primary osteoarthritis, right shoulder M19.011 Rotator cuff arthropathy of right shoulder M12.811 Status post reverse total arthroplasty of right shoulder Z96.611
== END 2022-11-26 14:45 | disposition home health service (06) ==
LOC: MEDSURG 14:51
PROVIDERS: Anesthesiology; Admitting Provider Specialist; PCP Nurse Practitioner Family; Visit Provider Specialist
PROC: (CPT 23472; principal; 2022-11-25 10:45)
DX: M19.011 Primary osteoarthritis, right shoulder (principal); M25.711 Osteophyte, right shoulder; E11.9 Type 2 diabetes mellitus without complications; E78.5 Hyperlipidemia, unspecified; Z79.899 Other long term (current) drug therapy; E66.01 Morbid (severe) obesity due to excess calories; Z68.38 Body mass index [BMI] 38.0-38.9, adult; Z79.84 Long term (current) use of oral hypoglycemic drugs; Z87.891 Personal history of nicotine dependence
CPT/HCPCS: 23472; 36415; 36416; 51702; 73030; 76000; 80048; 81003; 82962; 85025; 97166; C1776; G0378; J0131; J0690; J1100; J1170; J2370; J2405; J2704; J2795; J3010; J3370; J3490; J7030

== ENCOUNTER → 2022-12-09 09:03 | Outpatient (BNVA) | payer OTHER, SELFPAY | PROVIDERS: PCP Nurse Practitioner Family; Visit Provider Nurse Practitioner Family | DX: Z96.611 Presence of right artificial shoulder joint (principal) | CPT/HCPCS: 73030; 99024 ==

== ENCOUNTER → 2023-01-07 10:02 | Outpatient (BNVA) | payer OTHER, SELFPAY | PROVIDERS: PCP Nurse Practitioner Family; Visit Provider Nurse Practitioner Family | DX: Z96.611 Presence of right artificial shoulder joint (principal) | CPT/HCPCS: 73030; 99213 ==

== ENCOUNTER → 2023-02-18 09:49 | Outpatient (BNVA) | payer OTHER, SELFPAY | PROVIDERS: PCP Nurse Practitioner Family; Visit Provider Nurse Practitioner Family | DX: M51.36 Other intervertebral disc degeneration, lumbar region (principal); M47.816 Spondylosis without myelopathy or radiculopathy, lumbar region; Z96.643 Presence of artificial hip joint, bilateral | CPT/HCPCS: 73030; 99024; 99213; 99214 ==

== ENCOUNTER 2023-03-16 10:25 | Outpatient (CLI) | payer OTHER, SELFPAY ==
--- NOTE | 2023-03-16 11:00 | MR_ITS ---
WS: [id number] MRI LUMBAR SPINE NONCONTRAST TECHNIQUE: Sagittal T1, T2 and STIR imaging. Axial T1 and T2 imaging. CLINICAL INFORMATION: M48.062 - Spinal stenosis, lumbar region with neurogenic ... COMPARISON: None. FINDINGS: Mild lumbar curve. No acute compression. No high-grade central canal stenosis. Slight anterolisthesis L5 on S1. L1-L2: Mild disc osteophyte complex with endplate ridging. Mild left foraminal narrowing. Mild facet arthropathy. Spinal canal is patent. L2-L3: Mild annular bulging with slight effacement of the ventral thecal sac. Moderate facet arthrop athy. Small bilateral foraminal protrusions with mild bilateral foraminal narrowing. L3-L4: Mild annular bulging. Moderate facet arthropathy. Small bilateral foraminal protrusions with m ild bilateral foraminal narrowing and slight impingement on the exiting L3 nerve roots right greater than left. L4-L5: Mild annular bulging. Slight effacement of the ventral thecal sac. Slight impingement of trave rsing L5 nerve roots bilaterally. Moderate facet arthropathy. Moderate left greater than right forami nal narrowing. Impingement on the exiting left L4 nerve root. L5-S1: Mild annular bulging with osteophytic ridging. Moderate facet arthropathy. Spinal canal and fo ramen are patent. Partially visualized small right renal cysts. Adrenal glands are normal. Visualized pelvic bony structures: Normal. Paravertebral soft tissues: Normal. IMPRESSION: 1. Mild lumbar curve. No acute compression. 2. Disc bulging worse at L4-5 with slight impingement of traversing L5 nerve roots bilaterally in th e subarticular recess. 3. Moderate left L4-5 foraminal narrowing impinges the exiting left L4 nerve root. Correlation left L4 nerve root symptoms. 4. Small bilateral foraminal protrusions L3-4 with mild bilateral foraminal narrowing. 5. Mild bilateral L2-L3 foraminal narrowing.
== END 2023-03-16 10:26 | disposition home or self-care (01) ==
LOC: RAD 10:28
PROVIDERS: PCP Nurse Practitioner Family; Visit Provider Anesthesiology Pain Medicine
DX: M48.062 Spinal stenosis, lumbar region with neurogenic claudication (principal); M51.36 Other intervertebral disc degeneration, lumbar region
CPT/HCPCS: 72148

== ENCOUNTER → 2023-03-23 09:18 | Outpatient (BNVA) | payer OTHER, SELFPAY | PROVIDERS: PCP Nurse Practitioner Family; Visit Provider Anesthesiology Pain Medicine | DX: Z96.643 Presence of artificial hip joint, bilateral; M51.36 Other intervertebral disc degeneration, lumbar region; M47.816 Spondylosis without myelopathy or radiculopathy, lumbar region | CPT/HCPCS: 99214 ==

== ENCOUNTER → 2023-06-29 08:21 | Outpatient (BNVA) | payer OTHER, SELFPAY | PROVIDERS: PCP Nurse Practitioner Family; Visit Provider Anesthesiology Pain Medicine | DX: M62.830 Muscle spasm of back (principal); Z96.643 Presence of artificial hip joint, bilateral; M51.36 Other intervertebral disc degeneration, lumbar region; M47.816 Spondylosis without myelopathy or radiculopathy, lumbar region | CPT/HCPCS: 99214 ==

== ENCOUNTER → 2023-07-21 09:34 | Outpatient (BNVA) | payer OTHER, SELFPAY | PROVIDERS: PCP Nurse Practitioner Family; Visit Provider Anesthesiology Pain Medicine | DX: Z96.643 Presence of artificial hip joint, bilateral; M51.36 Other intervertebral disc degeneration, lumbar region; M47.816 Spondylosis without myelopathy or radiculopathy, lumbar region; M62.830 Muscle spasm of back | CPT/HCPCS: 99214 ==

== ENCOUNTER → 2024-02-10 11:09 | Outpatient (BNVA) | payer OTHER, SELFPAY | PROVIDERS: PCP Nurse Practitioner Family; Visit Provider Nurse Practitioner | DX: Z96.611 Presence of right artificial shoulder joint (principal) | CPT/HCPCS: 73030 ==

== ENCOUNTER → 2024-03-03 13:57 | Outpatient (BNVA) | payer OTHER, SELFPAY | PROVIDERS: PCP Nurse Practitioner Family; Visit Provider Podiatrist Foot & Ankle Surgery | DX: L60.3 Nail dystrophy (principal); E11.42 Type 2 diabetes mellitus with diabetic polyneuropathy; G62.9 Polyneuropathy, unspecified; Z79.84 Long term (current) use of oral hypoglycemic drugs | CPT/HCPCS: 11721; 99203 ==

== ENCOUNTER → 2024-03-21 10:56 | Outpatient (BNVA) | payer OTHER, SELFPAY | PROVIDERS: PCP Nurse Practitioner Family; Visit Provider Nurse Practitioner | DX: Z96.611 Presence of right artificial shoulder joint (principal) | CPT/HCPCS: 73030; 99213 ==

== ENCOUNTER → 2024-05-05 14:15 | Outpatient (BNVA) | payer OTHER, SELFPAY | PROVIDERS: PCP Nurse Practitioner Family; Visit Provider Podiatrist Foot & Ankle Surgery | DX: L60.3 Nail dystrophy (principal); G62.9 Polyneuropathy, unspecified; E11.42 Type 2 diabetes mellitus with diabetic polyneuropathy; Z79.84 Long term (current) use of oral hypoglycemic drugs | CPT/HCPCS: 11721 ==

== ENCOUNTER → 2024-07-15 14:08 | Outpatient (BNVA) | payer OTHER, SELFPAY | PROVIDERS: PCP Nurse Practitioner Family; Visit Provider Podiatrist Foot & Ankle Surgery | DX: L60.3 Nail dystrophy (principal); G62.9 Polyneuropathy, unspecified; E11.42 Type 2 diabetes mellitus with diabetic polyneuropathy; Z79.84 Long term (current) use of oral hypoglycemic drugs | CPT/HCPCS: 11721 ==

== ENCOUNTER → 2024-10-03 13:59 | Outpatient (BNVA) | payer OTHER, SELFPAY | PROVIDERS: PCP Nurse Practitioner Family; Visit Provider Podiatrist Foot & Ankle Surgery | DX: E11.42 Type 2 diabetes mellitus with diabetic polyneuropathy (principal); L60.3 Nail dystrophy; G62.9 Polyneuropathy, unspecified; Z79.84 Long term (current) use of oral hypoglycemic drugs | CPT/HCPCS: 11721 ==

== ENCOUNTER → 2025-03-08 13:48 | Outpatient (BNVA) | payer OTHER, SELFPAY | PROVIDERS: PCP Nurse Practitioner Family; Visit Provider Podiatrist Foot & Ankle Surgery | DX: E11.42 Type 2 diabetes mellitus with diabetic polyneuropathy (principal); L60.3 Nail dystrophy; G62.9 Polyneuropathy, unspecified; Z79.84 Long term (current) use of oral hypoglycemic drugs | CPT/HCPCS: 11721; 99213 ==

== ENCOUNTER → 2025-03-17 09:58 | Outpatient (BNVA) | payer OTHER, SELFPAY | PROVIDERS: PCP Nurse Practitioner Family; Visit Provider Nurse Practitioner | DX: Z96.611 Presence of right artificial shoulder joint (principal) | CPT/HCPCS: 73030; 99214 ==

== ENCOUNTER → 2025-05-17 14:31 | Outpatient (BNVA) | payer OTHER, SELFPAY | PROVIDERS: PCP Nurse Practitioner Family; Visit Provider Podiatrist Foot & Ankle Surgery | DX: E11.42 Type 2 diabetes mellitus with diabetic polyneuropathy (principal); L60.3 Nail dystrophy; E11.8 Type 2 diabetes mellitus with unspecified complications; G62.9 Polyneuropathy, unspecified; Z79.84 Long term (current) use of oral hypoglycemic drugs | CPT/HCPCS: 11721; 99213 ==

== ENCOUNTER 2025-06-05 14:02 | Emergency (ER) | payer OTHER, SELFPAY ==
[2025-06-05 14:04] VITALS: BP 173/116; PULSE 71; TEMP 36.8; O2SAT 97; BMI 31.5
--- OUTSIDE RECORDS SUMMARY | 2025-06-05 14:07 | XMS_ITS | Encounter Summary ---
Author Organization [facility] Address [address] [place] [address] Care Team Providers Care Customer Resource Specialist Name Role Phone Teto Walker MD Primary Care Provider [phone] Encounter Details Date Type Department Care Team (Late st Contact Info) Description 05/30/2025 External Device Data [place] ABSTRACTION Provider, Abstract NO ADDRESS ON FILE Social History Tobacco Use Types Packs/Day Years Used Date Smoking Tobacco: Former Smokeless Tobacco: Former Alcohol Use Standard Drinks/Week Comments Not Currently 0 (1 standard drink = 0.6 oz pur e alcohol) Financial Resource Strain Answer Date R ecorded How hard is it for you to pa y for the very basics like food, housing, medical care, and heating? Somewhat hard 03/19/2022 Food Insecurity Answer Date Recorded In the past 12 months, have you worried that your food would run out before you had money to buy more? Never true 03/19/2022 In the past 12 months, did y ou run out of food and didn't have money to buy more? Never true 03/19/2022 Transportation Needs Answer Date Record ed In the past 12 months, has l ack of transportation kept you from medical appointments or from getting medications? Yes 03/19/2022 Lack of Transportation (Non-Medical) Not on file 03/19/2022 Feeling Safe Answer Date Recorded Are you in a relationship wi th someone who hurts you emotionally and/or physically? No 12/13/2024 Sex and Gender Information Value Date Recorded Sex Assigned at Not on file Legal Sex Male 8:49 PM [employer] Gender Identity Not on file Sexual Orientation Not on file documented as of this encounter Plan of Treatment Upcoming Encounters Date Type Department Care Team (Late st Contact Info) Description 07/20/2025 4:30 PM AIRCRAFT TIME CLERK Appointment [facility] Neurology [facility] [address] [id number] Rajinder Atkins MD [address] [place] [id number] documented as of this encounter Visit Diagnoses Not on filedocumented in this encounter Additional Health Concerns Assessment Noted Time PHQ-9 Depression Total Score: 2 04/27/20 24 8:08 AM CDT documented as of this encounter Care Teams Customer Resource Specialist Relationship Specialty Start Date End Date Teto Walker MD [address] [facility] [address] [place] [id number] PCP - General Family Practice 10/06/23 documented as of this encounter
--- OUTSIDE RECORDS SUMMARY | 2025-06-05 14:07 | XMS_ITS | Clinical Summary ---
Author Organization [facility] Address [address] [place] [address] Care Team Providers Care Master Deputy [employer] Security Name Role Phone Natasha Wagner INDUSTRIAL SERVICES WORKER- Primary Care Provider [phone] Allergies No known active allergies Medications amLODIPine (NORVASC) 10 mg tablet Take 10 mg by mouth daily. Active atorvastatin (LIPITOR) 80 mg tablet Take 80 mg by mouth daily with supper. 1/2 tab q hs Active atenoloL (TENORMIN) 100 mg tablet Take 100 mg by mouth daily. 1/2 tab daily ( takes in am) Active losartan (COZAAR) 100 mg tablet Take 100 mg by mouth daily. Active meloxicam (MOBIC) 15 mg tablet Take 15 mg by mouth daily. Active cyclobenzaprine (FLEXERIL) 10 mg tablet Take 10 mg by mouth 3 times daily as needed for Spasm. Active metFORMIN (GLUCOPHAGE) 1,000 mg tablet Take 1,000 mg by mouth 2 times daily with meals. Active tamsulosin (FLOMAX) 0.4 mg capsule Take 0.4 mg by mouth daily. 2 tabs q pm Active furosemide (LASIX) 20 mg tablet Take 20 mg by mouth daily. 1/2 tab each am Active Active Problems No known active problems Social History Tobacco Use Types Packs/Day Years Used Date Smoking Tobacco: Former Smokeless Tobacco: Former Alcohol Use Standard Drinks/Week Comments Never 0 (1 standard drink = 0.6 oz pur e alcohol) Sex and Gender Information Value Date Recorded Sex Assigned at Not on file Legal Sex Male 5:54 PM CDT Gender Identity Not on file Sexual Orientation Not on file Last Filed Vital Signs Vital Sign Reading Time Taken Comments Blood Pressure 130/82 06/11/2020 1:30 PM VEST BASTER Pulse 89 06/11/2020 1:30 PM VEST BASTER Temperature 36.7 C (98 F) 06/11/2020 1:30 PM VEST BASTER Respiratory Rate 22 06/11/2020 1:30 PM VEST BASTER Oxygen Saturation 97% 06/11/2020 1:30 PM VEST BASTER Inhaled Oxygen Concentration - - Weight 131.1 kg (289 lb) 06/11/2020 1:30 PM VEST BASTER Height 177.8 cm (5' 10 ) 06/11/2020 1:30 PM VEST BASTER Body Mass Index 41.47 06/11/2020 1:30 PM VEST BASTER Plan of Treatment Health Maintenance Due Date Last Done Comments DTAP/TDAP/TD VACCINES (1 - Tdap) 01/23/1976 COLORECTAL SCREENING 2002 Colorectal Cancer Screening 2002 FIT-DNA Q 3 years 2002 FIT/FOBT Q 1 year 2002 Flex Sig/CT Colonography Q 5 years 2002 PNEUMOCOCCAL VACCINE 50+ YEARS (1 of 1 - PCV) 01/23/20 07 ZOSTER VACCINE (1 of 2) 2007 INFLUENZA VACCINE (#1) 2025 RSV VACCINE (60+ or ) (1 - 1-dose 75+ series) 01/23/2032 Insurance MEDICARE PART A HOSPITAL ONLY MEDICARE PART A HOSPITAL ONLY Care Teams Master Deputy Sheriff Court Security Relationship Specialty Start Date End Date Natasha Wagner APRN- [address] [place] [address] PCP - General Nurse Practitioner Family 06/06/20
--- OUTSIDE RECORDS SUMMARY | 2025-06-05 14:07 | XMS_ITS | Clinical Summary ---
Author Organization [facility] [facility] [employer] Address [address] [place] [address] Care Team Providers Care Ticker Installer Name Role Phone Teto Walker MD Primary Care Provider [phone] Allergies No known active allergies Medications tamsulosin (FLOMAX) 0.4 mg capsule Take 0.8 mg by mouth daily. Active furosemide (LASIX) 20 mg tablet Take 20 mg by mouth 1 time daily as needed. Active metFORMIN (GLUCOPHAGE) 1,000 mg tablet Take 1,000 mg by mouth 2 times daily with meals. Active fluticasone propionate (FLONASE) 50 mcg/spray [place], Suspension nasal inhaler Administer in each nostril. 2 Active omega-3 fatty acids-fish oil 300-1,000 mg Capsule Take by mouth daily. Active clopidogreL (PLAVIX) 75 mg Tablet Take 75 mg by mouth. Active POTASSIUM CHLORIDE ORAL Take 0.5 Tablets by mouth daily. Active cyclobenzaprine (FLEXERIL) 10 mg tablet Take 10 mg by mouth 3 times daily as needed for Spasm. Active losartan (COZAAR) 50 mg tablet Take 50 mg by mouth daily. Active OTHER 25 mg. Mybetric 25mg PO Daily Active aspirin (ECOTRIN EC) 81 mg Tablet, Delayed Release (E.C.) Take 81 mg by mouth daily. Active carbidopa-levod opa (SINEMET CR) 50-200 mg Controlled Release tablet Take 1 Tablet by mouth 3 times daily. 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 04/23/2023 Hyperlipidemia 04/23/2023 Type 2 diabetes mellitus wit hout complication, without long-term current use of insulin 04/23/2023 BPH associated with nocturia 04/23/2023 Encounters Date Type Department Care Team Description 05/30/2025 External Device Data [facility]L ABSTRACTION Provider, Abstract 05/30/2025 External Device Data [facility] ABSTRACTION Provider, Abstract 04/21/2025 Telephone [facility] [place] [address] [place] [phone] Deedee Whitfield, DARIA Reschedule YME 04/18/2025 External Device Data ST[facility] ABSTRACTION Provider, Abstract 04/18/2025 External Device Data [facility] ABSTRACTION Provider, Abstract 04/06/2025 3:00 PM CDT - 04/06/2025 11:59 PM CDT Hospital Encounter [facility] Neurology [facility] [address] [place] [phone] Rajinder Atkins MD Discharge Disposition: Home or Self Care 03/14/2025 External Device Data ST[facility] ABSTRACTION Provider, Abstract 03/08/2025 External Device Data [facility] ABSTRACTION Provider, Abstract from Last 3 Months Immunizations Immunization Administration Dates Next Due (ADACEL/BOOSTRIX)(10 YR UP) TDAP VACCINE, 0.5ML, IM 09/11/2022,01/31/2013,01/04/2006 (PNEUMOVAX 23)(50 YRS UP) PN EUMOCOCCAL POLYSACCHARIDE (PPV23) 0.5 ML, IM 05/16/2016 INFLUENZA VACCINE QUADRIVALE NT 6 MOS UP PF IM 09/11/2022,08/15/2021,09/06/2019,05/12 Influenza Seasonal Unspecifi ed Formulation PF IM 04/18/2024,05/18/2016,05/09/2015,05/01,05/12/2013 Influenza, Unspecified Formulation 05/09,05/06/2012,05/14/2011,05/22,05/11/2007 Pneumococcal vaccine, unspec ified formulation 04/04/1998 Td(adult) Unspecified Formulation 08/17/2007 Social History Tobacco Use Types Packs/Day Years Used Date Smoking Tobacco: Former Smokeless Tobacco: Former Tobacco Cessation:Counseling Given: No Alcohol Use Standard Drinks/Week Comments Not Currently [...] on file Legal Sex Male 8:49 PM ELECTRONICS WARFARE TECHNICIAN Gender Identity Not on file Sexual Orientation Not on file Last Filed Vital Signs Vital Sign Reading Time Taken Comments Blood Pressure 150/87 04/06/2025 3:06 PM CDT Pulse 73 04/06/2025 3:06 PM CDT Temperature 36.7 C (98 F) 04/06/2025 3:06 PM CDT Respiratory Rate 17 04/06/2025 3:06 PM CDT Oxygen Saturation 96% 04/06/2025 3:06 PM CDT Inhaled Oxygen Concentration - - Weight 100.4 kg (221 lb 6.4 oz) 04/06/2025 3:06 PM CDT Height 177.8 cm (5' 10 ) 04/06/2025 3:06 PM CDT Body Mass Index 31.77 04/06/2025 3:06 PM CDT Plan of Treatment Upcoming Encounters Date Type Department Care Team (Late st Contact Info) Description 07/20/2025 4:30 PM ELECTRONICS WARFARE TECHNICIAN Appointment [facility] [place] [address] [place] [address] Rajinder Atkins MD [address] [place] [phone] Health Maintenance Due Date Last Done Comments DIABETES ANNUAL FOOT EXAM 1975 DIABETES STATIN MANAGEMENT ( AUTO ORDER) 1997 FIT/FOBT Q 1 year 2002 Flex Sig/CT Colonography Q 5 years 2002 RSV VACCINE (60+ or ) (1 - Risk 50-74 years 1-dose series) 2007 ZOSTER VACCINE (1 of 2) 2007 PNEUMOCOCCAL VACCINE 50+ YEA RS (2 of 2 - PCV) 05/16/2017 05/16/2016, 04/04/1998 Abdominal Aortic Aneurysm (A AA) Screening 2022 SOFIYA uA (Auto Order) 08/03/2024 07/19/2024 , 04/27/2024, 02/11/2023 Medicare Advantage ([place]) Preventative Visit/Annual Wellness Visit 08/03/2024 04/27/2024, 04/23/2023, 03/19/2022 DIABETES ANNUAL RETINAL EXAM 01/05/2025 01/06/2024 INFLUENZA VACCINE (#1) 2025 , 04/23/2023, 09/11/2022, Additional history exists DIABETES MICROALBUMIN ANNUAL SCREEN 04/27/2025 04/27/2024, 02/11/2023 LDL CHOLESTEROL ANNUAL 04/27/2025 04/27/2024, 2022 FIT-DNA Q 3 years 08/06/2025 08/06/2022 DIABETES HBA1C Q 6 MONTHS 09/02/20252024, 04/27/2024, 02/11/2023, Additional history exists DIABETES: A1C (Auto Order) 03/02/202603/02, 04/27/2024, 02/11/2023, Additional history exists COLORECTAL SCREENING 03/24/2027 03/24/2022, 03/24/20 22 Colorectal Cancer Screening 03/24/2027 DTAP/TDAP/TD VACCINES (5 - T d or Tdap) 09/11/2032 09/11/2022, 01/31/2013, 08/17/2007, Additional history exists KHE eGFR (Auto Order) Completed 03/02/2025 , 12/13/2024, 04/27/2024, Additional history exists Procedures Procedure Name Priority Date/Time Associated Diagnosis Comments COMPREHENSIVE METABOLIC PANEL Stat 12/13/2024 9:18 PM CDT MICROALBUMIN/CREATINI NE RATIO, RANDOM UR Routine 04/27/2024 8:21 AM CDT Type 2 diabetes mellitus without complication, without long-term current use of insulin (CMS/HCC) LIPID PANEL Routine 04/27/2024 8:21 AM CDT Mixed hyperlipidemia HEMOGLOBIN A1C Routine 04/27/2024 8:21 AM CDT Type 2 diabetes mellitus without complication, without long-term current use of insulin (CMS/HCC) COLON CANCER SCREEN, STOOL DNA Routine 08/06/2022 5:35 PM ELECTRONICS WARFARE TECHNICIAN Screening for colon cancer ENDOSCOPY, COLON, SCREENING Routine 03/24/2022 from Last 3 Months or Most Recently Relevant to Health Maintenance Results * (ABNORMAL) COMPREHENSIVE METABOLIC PANEL (12/13/2024 9:18 PM CDT) SODIUM 139 136 - 145 mmol/L 12/13/2024 9:36 PM CDT [facility] POTASSIUM 3.7 3.5 - 5.1 mmol/L 12/13/2024 9:36 PM CDT [facility] CHLORIDE 102 98 - 107 mmol/L 12/13/2024 9:36 PM CDT [facility] CO2 26 22 - 29 mmol/L 12/13/2024 9:36 PM [facility] CALCIUM 9.8 8.8 - 10.2 mg/dL 12/13/2024 9:36 PM [facility] BUN 22 8 - 23 mg/dL 12/13/2024 9:36 PM [facility] CREATININE 1.13 0.67 - 1.17 mg/dL 12/13/2024 9:36 PM [facility] GLUCOSE 107(H) 74 - 99 mg/dL 12/13/2024 9:36 PM [facility] TOTAL PROTEIN 6.6 6.6 - 8.7 g/dL 12/13/2024 9:36 PM [facility] ALBUMIN 4.0 4.0 - 4.9 g/dL 12/13/2024 9:36 PM [facility] BILIRUBIN TOTAL 0.3 0.0 - 1.2 mg/dL 12/13/2024 9:36 PM [facility] ALKALINE PHOSPHATASE 95 40 - 129 U/L 12/13/2024 9:36 PM [facility] AST 19 0 - 50 U/L 12/13/2024 9:36 PM [facility] ALT 15 0 - 50 U/L 12/13/2024 9:36 PM [facility] GFR >60 >=60 mL/min/1.7 3 sq meter 12/13/2024 9:36 PM [facility] Comment:eGFR calculated with 2020 CKD-EPI equation. Vegetarian diet, extremely high or low muscle mass, and may affect results. Cystatin C with Glomerular Filtration Rate is a suitable alternative for these patients. ANION GAP 11 5 - 20 mmol/L 12/13/2024 9:36 PM [facility] Blood BLOOD SPECIMEN / Unknown Collection / Unknown 12/13/2024 9:18 PM CDT 12/13/2024 9:18 PM CDT Jose Torres MD CHEMISTRY ORDERABLES Final Result [facility] CLIA # [id number] [address] [place] [address] * (ABNORMAL) MICROALBUMIN/CREATININE RATIO, RANDOM UR (04/27/2024 8:21 AM CDT) Creatinine, Urine 172 20 - 320 mg/dL [facility] MICROALBUMIN, URINE 27.5 See Note: mg/dL [facility] Comment: Reference Range: Reference Range Not established MICROALBUMIN/CREAT RATIO, UR 160(H) <30 mg/g creat [facility] Comment: The ADA defines abnormalities in albumin excretion as follows: Albuminuria Category Result (mg/g creatinine) Normal to Mildly increased <30 Moderately increased 30-299 Severely increased > OR = 300 The ADA recommends that at least two of three specimens collected within a 3-6 month period be abnormal before considering a patient to be within a diagnostic category. Test Performed at: [facility] [address] [place] [phone] Laron Holly MD Urine URINE SPECIMEN OBTAINED BY CLEAN CATCH PROCEDURE / Unknown 04/27/2024 8:21 AM CDT 04/28/2024 4:11 AM CDT Deedee Whitfield PAPER WRAPPING MACHINE OPERATOR URINE ORDERABLES Final R esult [facility] [phone] [facility] [address] [place] [phone] * (ABNORMAL) HEMOGLOBIN A1C (04/27/2024 8:21 AM CDT) HEMOGLOBIN A1C 6.3(H) <5.7 % of total Hgb [facility] Comment: For someone without known diabetes, a hemoglobin A1c value between 5.7% and 6.4% is consistent with prediabetes and should be confirmed with a follow-up test. For someone with known diabetes, a value <7% indicates that their diabetes is well controlled. A1c targets should be individualized based on duration of diabetes, age, comorbid conditions, and other considerations. This assay result is consistent with an increased risk of diabetes. Currently, no consensus exists regarding use of hemoglobin A1c for diagnosis of diabetes for children. ESTIMATED AVERAGE GLUCOSE (MG/DL) 134 mg/dL [email or web address] ESTIMATED AVERAGE GLUCOSE (MMOL/L) 7.4 mmol/L [facility] Comment: This test was performed on the Mitzy christie c503 platform. Effective 10/19/23, a change in test platforms from the [employer] Patient Services Clerk to the Mitzy christie c503 may have shifted HbA1c results compared to historical results. Based on laboratory validation testing conducted at [facility], the Mitzy platform relative to the Kee platform had an average increase in HbA1c value of < or = 0.3%. This difference is within accepted variability established by the National Glycohemoglobin Standardization Program. Note that not all individuals will have had a shift in their results and direct comparisons between historical and current results for testing conducted on different platforms is not recommended. Test Performed at: [email or web address] [address] [place] [address] Laron Holly MD Blood 04/27/2024 8:21 AM CDT 04/28/2024 4:11 AM CDT Deedee Whitfield PAPER WRAPPING MACHINE OPERATOR CHEMISTRY ORDERABLES Fin al Result [facility] [phone] [facility] [address] [place] [phone] * (ABNORMAL) LIPID PANEL (04/27/2024 8:21 AM CDT) CHOLESTEROL 238(H) <200 mg/dL [facility] HDL 29(L) > OR = 40 mg/dL [facility] TRIGLYCERIDE 186(H) <150 mg/dL [facility] LDL CALCULATED 175(H) mg/dL (calc) [facility] Comment: Reference range: <100 Desirable range <100 mg/dL for primary prevention; <70 mg/dL for patients with CHD or diabetic patients with > or = 2 CHD risk factors. LDL-C is now calculated using the Luigi-Emerson calculation, which is a validated novel method providing better accuracy than the Friedewald equation in the estimation of LDL-C. Luigi SS et al. CHIQUI. 2013;310(19): 1114-7561 (http://education.[employer]/faq/MIJ253) CHOL/HDL RATIO 8.2(H) <5.0 (calc) [email or web address] NON-HDL CHOLESTEROL 209(H) <130 mg/dL (calc) [facility] Comment: For patients with diabetes plus 1 major ASCVD risk factor, treating to a non-HDL-C goal of <100 mg/dL (LDL-C of <70 mg/dL) is considered a therapeutic option. Test Performed at: [email or web address] [address] [facility] [place] [address] Laron Holly MD Blood 04/27/2024 8:21 AM CDT 04/28/2024 4:11 AM CDT Deedee Whitfield PAPER WRAPPING MACHINE OPERATOR CHEMISTRY ORDERABLES Fin al Result [facility] [phone] [email or web address] [address] [address] [facility] [place] [address] * COLON CANCER SCREEN, STOOL DNA (08/06/2022 5:35 PM ELECTRONICS WARFARE TECHNICIAN) COLOGUARD RESULT Negative Negative [facility] Comment: NEGATIVE TEST RESULT. A negative Cologuard result indicates a low likelihood that a colorectal cancer (CRC) or advanced adenoma (adenomatous polyps with more advanced pre-malignant features) is present. The chance that a person with a negative Cologuard test has a colorectal cancer is less than 1 in 1500 (negative predictive value >99.9%) or has an advanced adenoma is less than 5.3% (negative predictive value 94.7%). These data are based on a prospective cross-sectional study of 10,000 individuals at average risk for colorectal cancer who were screened with both Cologuard and colonoscopy. (Maria Teresa Perry al, N Engl J Med 2014;370(14):4317-2047) The normal value (reference range) for this assay is negative. COLOGUARD RE-SCREENING RECOMMENDATION: Periodic colorectal cancer screening is an important part of preventive healthcare for asymptomatic individuals at average risk for colorectal cancer. Following a negative Cologuard result, the [place] Cancer Society and U.S. Multi-Society Task Force screening guidelines recommend a Cologuard re-screening interval of 3 years. References: [place] [employer] Guideline for Colorectal Cancer Screening: https://www.cancer.org/cancer/dqfhz-tesjkg-adqiab/tyebqmqgo-uxgjdzjnr-uyeuvhe/ac s-rec ommendations.html.; James DK, Johann CR, Danielle LópezK, Colorectal Cancer Screening: Recommendations for Physicians and Patients from the U.S. Multi-Society Task Force on Colorectal Cancer Screening , Am J Gastroenterology 2017; 112:2066-4232. TEST DESCRIPTION: Composite algorithmic analysis of stool DNA-biomarkers with hemoglobin immunoassay. Quantitative values of individual biomarkers are not reportable and are not associated with individual biomarker result reference ranges. Cologuard is intended for colorectal cancer screening of adults of either sex, 45 years or older, who are at average-risk for colorectal cancer (CRC). Cologuard has been approved for use by the U.S. FDA. The performance of Cologuard was established in a cross sectional study of average-risk adults aged 50-84. Cologuard performance in patients ages 45 to 49 years was estimated by sub-group analysis of near-age groups. Colonoscopies performed for a positive result may find as the most clinically significant lesion: colorectal cancer [4.0%], advanced adenoma (including sessile serrated polyps greater than or equal to 1cm diameter) [20%] or non- advanced adenoma [31%]; or no colorectal neoplasia [45%]. These estimates are derived from a prospective cross-sectional screening study of 10,000 individuals at average risk for colorectal cancer who were screened with both Cologuard and colonoscopy. (Maria Teresa Perry al, N Engl J Med 2014;370(14):6732-1827.) Cologuard may produce a false negative or false positive result (no colorectal cancer or precancerous polyp present at colonoscopy follow up). A negative Cologuard test result does not guarantee the absence of CRC or advanced adenoma (pre-cancer). The current Cologuard screening interval is every 3 years. ([place] Cancer Society and U.S. Multi-Society Task Force). Cologuard performance data in a 10,000 patient pivotal study using colonoscopy as the reference method can be accessed at the following location: www.[employer]aqtWorld.The Optima/results. Additional description of the Cologuard test process, warnings and precautions can be found at www.cologMonkey Analyticsrd.com. Stool STOOL SPECIMEN / Unknown 08/06/2022 5:35 PM ELECTRONICS WARFARE TECHNICIAN 08/08/2022 6:25 PM ELECTRONICS WARFARE TECHNICIAN Mita Castanon MD BODY FLUIDS AND STOOLS Di fraga Result [facility] CLIA # [id number] [address], [address] [place] [address] * ENDOSCOPY, COLON, SCREENING (03/24/2022) us Abstract Provider GI PROCEDURE ORDERABLES Final Result from Last 3 Months or Most Recently Relevant to Health Maintenance Insurance BCBS MEDICARE HMO [facility] [employer] * Guarantor: [employer] (C) Account Type Relation to Patient Date of Phone Billing Address Corporate Other DEFAULT ADDRESS [address] [employer] Care Teams Ticker Installer Relationship Specialty Start Date End Date Teto Walker MD [address] [phone] PCP - General Family Practice 10/06/23
--- OUTSIDE RECORDS SUMMARY | 2025-06-05 14:07 | XMS_ITS | Encounter Summary ---
Author Organization [facility] [facility] Address [address] [place] [address] Care Team Providers Care Insurance Coder Name Role Phone Teto Walker MD Primary Care Provider [phone] Encounter Details Date Type Department Care Team [...] on file Legal Sex Male 8:49 PM BOX ICER Gender Identity Not on file Sexual Orientation Not on file documented as of this encounter Plan of Treatment Upcoming Encounters Date Type Department Care Team (Late st Contact Info) Description 07/20/2025 4:30 PM BOX ICER Appointment [facility] Neurology [facility] [address] [phone] Rajinder Atkins MD [address] [place] [phone] documented as of this encounter Visit Diagnoses Not on filedocumented in this encounter Additional Health Concerns Assessment Noted Time PHQ-9 Depression Total Score: 2 04/27/20 24 8:08 AM CDT documented as of this encounter Care Teams Insurance Coder Relationship Specialty Start Date End Date Teto Walker MD [address] [place] [phone] PCP - General Family Practice 10/06/23 documented as of this encounter"
--- NOTE | 2025-06-05 14:25 | CTR_ITS ---
PROCEDURE INFORMATION: Exam: CT Head Without Contrast Exam date and time: 06/05/2025 3:19 PM Age: 70 years old Clinical indication: Pain; Headache not specified TECHNIQUE: Imaging protocol: Computed tomography of the head without contrast. Radiation optimization: All CT scans at this facility use at least one of these dose optimization techniques: automated exposure control; mA and/or kV adjustment per patient size (includes targeted exams where dose is matched to clinical indication); or iterative reconstruction. COMPARISON: No relevant prior studies available. RADIATION DOSE METRICS: Total DLP (mGy-cm): 1220.5 FINDINGS: Brain: Chronic infarct in the right temporo-occipital region with probable small chronic lacunar infarcts in the basal ganglia. Moderate nonspecific attenuation within the periventricular and subcortical white matter, statistically most likely related to small vessel ischemic change. No intracranial hemorrhage or mass effect. Atherosclerotic calcification within the proximal intracranial vasculature. Mild diffuse cerebral atrophy present. Cerebral ventricles: Mild ventricular prominence which is likely at least in part related to atrophy. Pituitary gland and sella: The sella and basal cisterns appear unremarkable. Paranasal sinuses: Moderate-sized mucous retention cyst in the left maxillary sinus with small mucous retention cyst in the right sphenoid sinus. Remainder of the paranasal sinuses are well aerated. Mastoid air cells: Visualized mastoid air cells are well aerated. Bones: Concavity in the left medial orbital wall, which may be related to prior injury. No acute fracture seen. CT/CT head wo con* [id number] IMPRESSION: 1. No intracranial hemorrhage or mass effect. 2. 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 Additional moderate nonspecific attenuation within the periventricular and subcortical white matter, statistically most likely related to small vessel ischemic change. If there is high clinical concern for acute ischemia, non-contrast MRI of the brain could be obtained to further evaluate. 3. Mild ventricular prominence, which is likely at least in part related to atrophy. 4. Moderate-sized mucous retention cyst in the left maxillary sinus with small mucous retention cyst in the right sphenoid sinus. Remainder of the paranasal sinuses are well aerated.
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
[2025-06-05 15:03] LABS: Hematocrit 42.5 % (37-53); Hemoglobin 14.50 g/dL (11.27-16.99); Mean Corpuscular HGB Conc 34.1 g/dL (30-55); Mean Corpuscular Hemoglobin 30.9 pg (27-33); Mean Corpuscular Volume 90.4 fl (82-101); Nucleated Red Blood Cells % 0 %; Platelet Count 228 10^3/cmm (157-399); Red Blood Count 4.70 10^6/uL (3.85-5.65); White Blood Count 7.41 10^3/uL (3.29-11.43)
[2025-06-05 15:20] LABS: Alanine Aminotransferase < 5 U/L (0-41); Albumin Level 3.8 g/dL (3.5-5.2); Alkaline Phosphatase 99 U/L (40-130); Anion Gap 13.7 (5-19); Aspartate Amino Transferase 14 U/L (0-40); Blood Urea Nitrogen 27 mg/dL (8-23); Calcium 9.6 mg/dL (8.5-10.5); Carbon Dioxide 26 mmol/L (22-29); Chloride 102 mmol/L (98-107); Creatinine Clr Calc Pharmacy 83.7160; Globulin 2.8 g/dL (1.3-4.6); Glucose 143 mg/dL (65-115); Osmolality Calculated 294 mOsm/kg (285-295); Potassium 3.7 mmol/L (3.5-5.1); Sodium 138 mmol/L (136-145); Total Protein 6.6 g/dL (6.6-8.7)
[2025-06-05] MEDS: diphenhydrAMINE 50 mg/mL SDV 1mL 25 MG IVP (15:31)
[2025-06-05 16:53] VITALS: BP 158/94; PULSE 63; RESP 16; O2SAT 96
== END 2025-06-05 16:49 | disposition home or self-care (01) ==
PROVIDERS: Emergency Provider Physician Assistant; PCP Nurse Practitioner Family
DX: R51.9 Headache, unspecified (principal); Z79.02 Long term (current) use of antithrombotics/antiplatelets; Z79.84 Long term (current) use of oral hypoglycemic drugs; Z87.891 Personal history of nicotine dependence; E11.9 Type 2 diabetes mellitus without complications; I10 Essential (primary) hypertension; Z86.73 Personal history of transient ischemic attack (TIA), and cerebral infarction without residual deficits
CPT/HCPCS: 36415; 70450; 80053; 85025; 96374; 96375; 99285; J1100; J1200; J1885